=== PATIENT | male | born 1975 | race Two or more races ===

== ENCOUNTER → 2024-03-02 | Outpatient (CLI) | payer OTHER ==
[2024-03-02 15:49] VITALS: BP 144/83; PULSE 85; RESP 16; TEMP 98.3
--- NOTE | 2024-03-02 16:37 | P.SLEEP ---
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 The patient has loud snoring, sleep fragmentation and chronic fatigue and sleepiness during the day. 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 He goes to bed at around 11 PM and wakes up 4 AM in the morning. He wakes up tired and not refreshed. He has also restlessness in lower extremities. He is not sure that the restlessness is affecting his sleep maintenance. No episodes of nocturia. Denies waking up choking and gasping for air. No grinding of the teeth. No sleepwalking or sleep talking. No anxiety or panic attacks. No heartburn. His Beaufort score is currently is 4. No history of any congestion heart failure or atrial fibrillation or stroke. He is known to have diabetes hypertension and hyperlipidemia. He lives alone and he prefers to sleep on his side. He seems to be a nose breather. Does not take any naps during the day. He quit smoking back in June 2021 and following that he has gained considerable mount of weight and currently is trying to lose weight. Review of Systems Constitutional: Reports daytime sleepiness, Reports fatigue, Reports weight gain Eyes: denies as per HPI, denies blurred vision, denies bulging eye, denies decreased vision, denies diplopia, denies discharge, denies dry eye, denies irritation, denies itching, denies pain, denies photophobia, denies loss of peripheral vision, denies loss of vision, denies tunnel vision/blind spots Ears: deny: decreased hearing, ear discharge, earache, tinnitus Ears, nose, mouth and throat: Reports as per HPI Breasts: absent: as per HPI, gynecomastia Cardiovascular: Reports as per HPI Respiratory: Reports as per HPI, Reports snoring Gastrointestinal: Reports as per HPI Genitourinary: Reports as per HPI Musculoskeletal: Reports as per HPI Musculoskeletal: absent: ankle pain, ankle stiffness, ankle swelling, as per HPI, elbow pain, elbow stiffness, elbow swelling, foot pain, foot stiffness, foot swelling, hand pain, hand stiffness, hand swelling, hip pain, hip stiffness, hip swelling, knee pain, knee stiffness, knee swelling, shoulder pain, shoulder stiffness, shoulder swelling, wrist pain, wrist stiffness, wrist swelling Integumentary: Reports as per HPI Neurological: Reports as per HPI Psychiatric: Reports hypersomnia, Reports sleep disturbances Endocrine: Reports fatigue Hematologic/Lymphatic: Reports as per HPI Allergic/Immunologic: Reports as per HPI Past Medical History Past Medical History: Diabetes Mellitus, Hyperlipidemia, Hypertension Additional Past Medical History / Comment(s): ARTHRITIS, SNORING, RESTLESS LEGS History of Any Multi-Drug Resistant Organisms: None Reported Past Surgical History: Orthopedic Surgery Additional Past Surgical History / Comment(s): R ANKLE RX Past Psychological History: ADD/ADHD Additional Psychological History / Comment(s): HORRIBLE TEST ANXIETY Smoking Status: Former smoker Past Alcohol Use History: Rare Past Drug Use History: None Reported - Past Family History Brother(s) Family Medical History: Sleep Apnea/CPAP/BIPAP Additional Family Medical History / Comment(s): BROTHER AND SISTER - SLEEP APNEA, SISTER - CANCER MULTIPLE MYELOMA, BROTERH AND FATHER - DIABETIC Medications and Allergies Home Medications Medication Instructions Recorded Confirmed Type Cholecalciferol (Vitamin D3) 2,000 capsule PO DAILY 03/02/24 03/02/24 History [Vitamin D3 (50 Mcg = 2000 Iu)] Ezetimibe [Zetia] 10 mg PO DAILY 03/02/24 03/02/24 History Losartan [Cozaar] 25 mg PO DAILY 03/02/24 03/02/24 History Rosuvastatin [Crestor] 10 mg PO DAILY 03/02/24 03/02/24 History Ubidecarenone [Co Q-10] 200 mg PO DAILY 03/02/24 03/02/24 History metFORMIN HCL [Glucophage] 500 mg PO DAILY 03/02/24 03/02/24 History Physical Exam Vitals: Vital Signs Temp Pulse Resp BP Pulse Ox 03/02/24 15:26 98.3 F 85 16 144/83 16 L Intake and Output 03/02/24 03/02/24 03/02/24 06:59 14:59 22:59 Other: Weight 137.892 kg Morbidly obese,, comfortable no acute distress, body mass index of 47.2. Beaufort score is 4. The patient appeared well nourished and normally developed. Vital signs as documented. Head exam is unremarkable. No scleral icterus or corneal arcus noted. Neck is without jugular venous distension, thyromegaly, or carotid bruits. The patient has a Mallampati class IV. Carotid upstrokes are brisk bilaterally. Lungs are clear to auscultation and percussion. Cardiac exam reveals the PMI to be normally sized and situated. Rhythm is regular. First and second heart sounds normal. No murmurs, rubs or gallops. Abdominal exam reveals normal bowel sounds, no masses, no organomegaly and no aortic enlargement. Extremities are nonedematous and both femoral and pedal pulses are normal. Examination of the skin revealed no evidence of significant rashes, suspicious appearing nevi or other concerning lesions. Neurologically, the patient is awake and alert and the patient does not have any focal neurological deficit. Cranial nerves are essentially intact. Assessment and Plan Plan: Loud snoring along with symptoms of fatigue and sleepiness with an Beaufort score of 4. 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 Despite his fatigue and sleepiness, he still is functional at work. Rule out underlying restless leg syndrome contributing to his sleep fragmentation. Morbid obesity with a BMI of 47.2 Chronic hypersomnia/fatigue Diabetes mellitus type 2 Hypertension Hyperlipidemia Previous history of smoking Plan Increase clinical suspicion for obstructive sleep apnea. Rule out underlying. Regular movement related to restless legs. Will proceed with screening polysomnography. Continue efforts to lose weight. Patient is already lost around 10 pounds and the patient is following up with a dietitian. She is comorbidities. Maintain regular sleep schedule. Maintain good sleep hygiene measures. Will continue to follow. Sleep Note - Sleep Data ESS Total: 4 - Sleep Note Sleep Note: Temperature: 98.3 F Pulse Rate: 85 Respiratory Rate: 16 Blood Pressure: 144/83 SpO2: 16 Height: 5 ft 7 in Weight: 137.892 kg BMI: Neck Circumference: 19
== END ==
LOC: 3 N SLEEP 14:33
PROVIDERS: ATTEND Internal Medicine Critical Care Medicine
DX: R06.83 Snoring (principal); G47.10 Hypersomnia, unspecified; R53.83 Other fatigue; E66.01 Morbid (severe) obesity due to excess calories; E11.9 Type 2 diabetes mellitus without complications; I10 Essential (primary) hypertension; E78.5 Hyperlipidemia, unspecified; Z87.891 Personal history of nicotine dependence; Z68.42 Body mass index [BMI] 45.0-49.9, adult; Z79.899 Other long term (current) drug therapy; Z79.84 Long term (current) use of oral hypoglycemic drugs
CPT/HCPCS: 99202

== ENCOUNTER 2024-04-25 19:31 | Outpatient (CLI) | payer OTHER ==
--- NOTE | 2024-05-02 22:26 | P.PCN ---
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 The patient has loud snoring, sleep fragmentation and chronic fatigue and sleepiness during the day. 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 He goes to bed at around 11 PM and wakes up 4 AM in the morning. He wakes up tired and not refreshed. He has also restlessness in lower extremities. He is not sure that the restlessness is affecting his sleep maintenance. No episodes of nocturia. Denies waking up choking and gasping for air. No grinding of the teeth. No s leepwalking or sleep talking. No anxiety or panic attacks. No heartburn. His Strang score is currently is 4. No history of any congestion heart failure or atrial fibrillation or stroke. He is known to have diabetes hypertension and hyperlipidemia. He lives alone and he prefers to sleep on his side. He seems to be a nose breather. Does not take any naps during the day. He quit smoking back in June 2021 and following that he has gained considerable mount of weight and currently is trying to lose weight. Physical findings The patient's weight is 204 pounds and the patient carries a body mass index of 47.6 Technical description The patient was studied using a standard complex polysomnography protocol that included recording of the 2 EKG, Central, occipital and frontal EEG, right and left outer canthus EOG, submental EMG, right and left anterior tibialis EMG, respiratory airflow by thermocouple and or pressure/flow transducer, respiratory efforts by abdominal and thoracic PVDF belts, oxygen saturation by cable oximetry. Position by observation synchronized the PSG. Equipment used: [employer]. Sleep characteristics The total recording duration was 372 minutes. The total sleep time was 189.5 minutes. The overall sleep efficiency was 50.9%. The latency to sleep onset was 34.0 minutes. The latency to REM sleep was 39.5 minutes. The sleep architecture was characterized by 14% stage I, 61.5% stage II, 7.9% stage III, 16.6% REM sleep. The total arousal index was 51. The wake after sleep onset time was 148.0 minutes. Respiratory analysis The patient encountered a total of 126 obstructive respiratory events of which 18 were obstructive apneas, 0 mixed apneas and 118 obstructive hypopneas. The resulting AHI was 39.3. The respiratory arousal index was 26.9. The baseline pulse ox was 93%, while awake, lowest oxygen saturation was 85% and the patient was spent approximately 4% of sleep time below pulse ox of 89% Sleep continuity summary The patient encountered total of 161 arousals with an arousal index of 51. Respiratory arousal index was 26.9 Periodic limb movement summary There was a total of 8 periodic limb movement activity with arousals with an index of 2.5 Cardiac summary The average heart rate was 63 with a minimum heart rate of 59 and maximum heart of 71 Assessment Severe symptomatic CLIFFORD with an AHI of 39.3 High arousal index part related to obstructive sleep apnea Mild nocturnal oxygen desaturation with a pulse ox of 85%, minimum Poor sleep efficiency calculated to be at 50.9% Loud snoring along with symptoms of fatigue and sleepiness with an Strang score of 4. 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 Despite his fatigue and sleepiness, he still is functional at work. Morbid obesity with a BMI of 47.2 Chronic hypersomnia/fatigue Diabetes mellitus type 2 Hypertension Hyperlipidemia Previous history of smoking Plan Will proceed with CPAP titration. Continue efforts to lose weight. Patient is already lost around 10 pounds and the patient is following up with a dietitian. She is comorbidities. Maintain regular sleep schedule. Maintain good sleep hygiene measures. Will continue to follow.
== END 2024-04-26 06:00 | disposition home or self-care (01) ==
LOC: 3 N SLEEP 19:31
PROVIDERS: ATTEND Internal Medicine Critical Care Medicine
DX: G47.33 Obstructive sleep apnea (adult) (pediatric) (principal); G47.36 Sleep related hypoventilation in conditions classified elsewhere; E66.01 Morbid (severe) obesity due to excess calories; R53.83 Other fatigue; E11.9 Type 2 diabetes mellitus without complications; I10 Essential (primary) hypertension; E78.5 Hyperlipidemia, unspecified; Z87.891 Personal history of nicotine dependence; Z68.42 Body mass index [BMI] 45.0-49.9, adult; Z79.899 Other long term (current) drug therapy; Z79.84 Long term (current) use of oral hypoglycemic drugs
CPT/HCPCS: 95810